=== PATIENT | male | born 1955 | race Two or more races ===

== ENCOUNTER 2019-05-26 08:03 | Emergency (ER) | payer MEDICAID ==
[~2019-05-26] VITALS: Ht 180.3 cm; Wt 78.5 kg
[2019-05-26] MEDS ORDERED: ASPI81CH43 PO (08:37)
[2019-05-26] MEDS ORDERED: AMLO5TAB15 PO (08:37)
[2019-05-26 08:50] LABS: Basophils # (auto) 0.1 uL; Eosinophils # (auto) 0.1 uL; Hematocrit 42.7 % (41.0-53.0); Hemoglobin 14.9 g/dL (13.5-17.5); Lymphocytes # (auto) 1.5 uL; Lymphocytes % (auto) 23.4 % (10.0-50.0); Mean Corpuscular Hemoglobin 33.8 pg (28.0-32.0); Mean Corpuscular Volume 96.7 fL (80.0-100.0); Monocytes # (auto) 0.9 uL; Monocytes % (auto) 13.5 % (0.0-12.0); Neutrophils # (auto) 3.9 uL; Neutrophils % (auto) 61.1 % (37.0-80.0); Platelet Count (auto) 243 10^3/uL (140-450); Red Blood Cells 4.42 10^6/uL (4.5-5.90); Red Cell Distribution Width 12.3 % (11.8-14.3); White Blood Cell 6.4 10^3/uL (4.4-10.8)
[2019-05-26 09:12] LABS: Albumin 4.3 g/dL (3.4-5.0); Anion Gap 9 (5-15); Blood Alcohol < 3.0 mg/dL (0-5); Calcium 8.5 mg/dL (8.5-10.1); Carbon Dioxide 23 mmol/L (21-32); Chloride 102 mmol/L (98-107); Glucose 144 mg/dL (74-106); Sodium 134 mmol/L (136-145)
[2019-05-26 09:18] LABS: Alanine Aminotransferase 46 U/L (16-61); Alkaline Phosphatase 108 U/L (45-117); Aspartate Aminotransferase 55 U/L (15-37); Bilirubin, Total 2.1 mg/dL (0.2-1.0); GFR African American 115 mL/min; GFR Non-African American 95 mL/min; Total Protein 8.7 g/dL (6.4-8.2)
[2019-05-26 09:28] LABS: Potassium 2.8 mmol/L (3.5-5.1)
[2019-05-26] MEDS ORDERED: ASPirin 81 mg TAB PO ONE (09:30)
[2019-05-26] MEDS ORDERED: LORazepam 0.5 MG TAB PO ONE (09:30)
[2019-05-26] MEDS ORDERED: THIAMINE 100mg/ml INJ (200mg/2ml VIAL) IV ONE (09:30)
[2019-05-26 09:31] LABS: BUN/Creatinine Ratio 9.2; Blood Urea Nitrogen 8 mg/dL (7-18)
[2019-05-26] MEDS ORDERED: POTASSIUM EFFERVESENT TAB 25 MEQ PO ONE (09:45)
[2019-05-26 11:39] LABS: Urine Bacteria NONE SEEN /hpf (None Seen); Urine Blood Negative /uL (Negative); Urine Specific Gravity 1.013 (1.001-1.035); Urine WBC <1 /hpf (0 - 3)
[2019-05-26] MEDS ORDERED: SODIUM CHLORIDE 0.9% 1,000 ML IV ONE (11:56)
[2019-05-26 13:42] LABS: Alcohol, Urine < 3.0 mg/dL (0-5); Amphetamine Screen, Urine NEGATIVE (NEGATIVE); Barbiturate Scree,Urine NEGATIVE (NEGATIVE); Benzodiazephine Screen, Urine NEGATIVE (NEGATIVE); Cannabinoid Screen, Urine NEGATIVE (NEGATIVE); Cocaine Screen, Urine NEGATIVE (NEGATIVE); Opiate Scree,Urine NEGATIVE (NEGATIVE); Phencyclidine Screen, Urine NEGATIVE (NEGATIVE)
[2019-05-26 14:00] VITALS: BP 127/71
== END 2019-05-26 14:53 | disposition home or self-care (01) ==
LOC: ER 08:11
DX: F41.9 Anxiety disorder, unspecified (principal); F10.10 Alcohol abuse, uncomplicated; I10 Essential (primary) hypertension; E86.0 Dehydration; E87.6 Hypokalemia
CPT/HCPCS: 36415; 71045; 80053; 80307; 80320; 81001; 84484; 85025; 93005; 96361; 96374; 99284; J3411; J7030